=== PATIENT | male | born 1950 | race Caucasian/White ===

== ENCOUNTER 2018-04-09 07:29 | Day surgery (SDC) | payer MEDICARE, OTHER ==
[2018-04-09] MEDS ORDERED: LIDOCAINE 2% MDV (20MG/ML) 20ML VIAL IV ONE (07:30)
[2018-04-09] MEDS ORDERED: PROPOFOL 10 MG/ML VIAL IV ONE (07:30)
--- NOTE | 2018-04-10 10:10 | Operative Note ---
DATE OF SURGERY: April 09, 2018 OPERATION: COLONOSCOPY. PREOPERATIVE DIAGNOSIS: Personal history of colon polyps. POSTOPERATIVE DIAGNOSIS: Fair prep and moderate sigmoid diverticulosis. PROCEDURE: After informed consent was obtained from the patient, he was placed in the left lateral decubitus position in the endoscopy suite, sedated and monitored by the department of anesthesia. Digital rectal examination was unremarkable. A well-lubricated [id number] colonoscope was inserted into the rectum and advanced to the cecum. Preparation quality was fair at best. Numerous areas were rinsed and fluid and stool attempted to be evacuated. There was particulate stool that did obscure the colonic mucosa in some form of fashion diffusely. This was not severe but small polyps may have been obscured. In any event, the cecum, ascending colon, transverse colon, and descending colon. The sigmoid colon demonstrated moderate diverticular changes. No polyps were seen throughout the length of the colon. The rectum was unremarkable in forward and J-turn views. The endoscope was straightened, the rectal ampulla deflated, and the endoscope was removed. RECOMMENDATIONS: I would suggest the patient follow a high-fiber diet. I would recommend a repeat exam in 3 years. As always, thank you for allowing me to participate in the healthcare of your patients. CC: DO MARKELL Milian
== END 2018-04-09 09:00 | disposition home or self-care (01) ==
LOC: HOP 07:29
PROVIDERS: ATTEND Internal Medicine Gastroenterology
DX: Z12.11 Encounter for screening for malignant neoplasm of colon (principal); Z86.010 Personal history of colon polyps; K57.30 Diverticulosis of large intestine without perforation or abscess without bleeding; I10 Essential (primary) hypertension; E78.00 Pure hypercholesterolemia, unspecified
CPT/HCPCS: 00812; G0105

== ENCOUNTER 2018-07-28 12:14 | Day surgery (SDC) | payer MEDICARE, OTHER ==
[~2018-07-28 12:14] MED LIST: CLINDAMYCIN 600MG/50ML PREMIX 600 MG/50 ML BAG IVPB ONE
[2018-07-28] MEDS ORDERED: PROPOFOL 10 MG/ML VIAL IV ONE (12:15)
[2018-07-28] MEDS ORDERED: FENTANYL PF 100MCG/2ML VIAL IV ONE (12:15)
[2018-07-28] MEDS ORDERED: MIDAZOLAM HCL 2MG/2ML VIAL IV ONE (12:15)
[2018-07-28] MEDS ORDERED: LIDOCAINE 2% MDV (20MG/ML) 20ML VIAL IV ONE (12:15)
== END 2018-07-28 15:20 | disposition home or self-care (01) ==
LOC: SUR 12:14
PROVIDERS: ATTEND Urology
DX: R31.21 Asymptomatic microscopic hematuria (principal); N20.0 Calculus of kidney; I10 Essential (primary) hypertension
CPT/HCPCS: 52005; 00910; 74420; Q9958; J3010